=== PATIENT | female | born 1995 | race Two or more races ===

== ENCOUNTER 2022-07-14 18:06 | Emergency (ER) | payer OTHER ==
[~2022-07-14] VITALS: Ht 162.6 cm; Wt 90.7 kg
== END 2022-07-14 22:45 | disposition home or self-care (01) ==
LOC: ER 18:06
DX: R10.11 Right upper quadrant pain (principal); R16.0 Hepatomegaly, not elsewhere classified

== ENCOUNTER 2024-08-26 11:36 | Emergency (ER) | payer OTHER ==
[~2024-08-26] VITALS: Ht 162.6 cm; Wt 80.7 kg
[2024-08-26 14:17] LABS: HEMATOCRIT 41.6 % (36.0-45.00); HEMOGLOBIN 13.9 g/dL (12.0-15.00); MEAN CELL VOLUME 93.8 fL (80.00-100.00); MEAN CORPUSCULAR HEMOGLOBIN 31.5 pg (27.00-32.0); MEAN CORPUSCULAR HGB CONC 33.5 g/dl (32.0-36.0); PLATELET COUNT 206 K/uL (150-450); RED BLOOD COUNT 4.43 M/uL (4.00-6.00); RED CELL DISTRIBUTION WIDTH 12.8 % (11.5-14.5)
[2024-08-26 14:35] LABS: PH,URINE 7.5 (5.0-8.0); URINE APPEARANCE Clear; URINE BILIRRUBIN Negative (NEGATIVE); URINE BLOOD Negative; URINE COLOR Yellow; URINE GLUCOSE Negative (NEGATIVE); URINE KETONE Negative (NEGATIVE); URINE LEUKOCYTE Negative; URINE NITRATE Negative; URINE PROTEIN Negative (NEGATIVE)
[2024-08-26 14:39] LABS: URINE BACTERIA 95.4 uL (0.0-1933); URINE EPITHELIAL CELLS 2.5 uL (0.0-38.8); URINE WBC 1.8 uL (0.0-23.2)
[2024-08-26 15:00] LABS: URINE RBC 0.7 uL (0.0-20.8)
[2024-08-26 15:57] LABS: CALCIUM 9.3 mg/dL (8.5-10.1); CREATININE SERUM 0.8 mg/dL (0.55-1.02); GFR 86.04; POTASSIUM 4.02 mEq/L (3.5-5.1)
== END 2024-08-26 17:33 | disposition home or self-care (01) ==
LOC: ER 11:36
PROVIDERS: Emergency Medicine
DX: O20.8 Other hemorrhage in early pregnancy (principal); Z88.6 Allergy status to analgesic agent